=== PATIENT | male | born 1990 | race Caucasian/White ===

== ENCOUNTER 2016-12-05 23:12 | Emergency (ER) | payer OTHER ==
[~2016-12-05] VITALS: Ht 172.7 cm; Wt 104.3 kg
--- NOTE | 2016-12-05 23:29 | ED GENERAL ADULT ---
History of Present Illness General Chief Complaint: ETOH/Drug Related Complaint Stated Complaint: TOOK TO MUCH AMBIEN ON ACCIDENT PER PT Source: patient, family Exam Limitations: no limitations Vital Signs & Intake/Output Vital Signs & Intake/Output Vital Signs Date Time Temp Pulse Resp B/P B/P Pulse O2 O2 Flow FiO2 Mean Ox Delivery Rate 12/05 2324 97.9 99 16 145/87 90 Room Air ED Intake and Output 12/06 0000 12/05 1200 Intake Total Output Total Balance Patient 230 lb Weight Allergies Coded Allergies: No Known Allergies (12/05/16) Reconcile Medications Bupropion HCl (Bupropion XL) 150 MG TAB.ER.24H 1 TAB PO DAILY MOOD STABILIZER (Reported) Eszopiclone 2 MG TABLET 1 TAB PO QPM PTSD (Reported) Gabapentin 300 MG CAPSULE 1 CAP PO TID PAIN (Reported) Oxycodone HCl/Acetaminophen (Oxycodone-Acetaminophen 10-325) 10 MG-325 MG TABLET 1 TAB PO Q4P PRN PAIN (Reported) Prazosin HCl 2 MG CAPSULE 1 CAP PO QPM NIGHT TERRORS (Reported) Sertraline HCl 100 MG TABLET 1 TAB PO DAILY DEPRESSION (Reported) Zolpidem Tartrate 10 MG TABLET 1 TAB PO QPMP SLEEP AID (Reported) Triage Note: PER PT TOOK 25MG OF PERCOCET AT 1830 TO COUNTER ACT NERVE PAIN IN FOOT. THEN AT 2129 TOOK 10 MG AMBIEN, AND MAYBE A 2ND ONE PT VERY SLEEPY IN TRIAGE. DIRECTLY TO ROOM/ Triage Nurses Notes Reviewed? yes HPI: Patient took his last Percocet at 7 PM for his leg pain. Patient has not been sleeping well lately because of his leg pain. Patient took an Ambien tonight before he went to bed. His mom woke up to go to the bathroom and heard him snoring and found him Up off the Bed. She Attempted to Wake Him up Very Slow to Arouse. When He Did Wake up He Told Her That He Was Unsure If He Took One Pill of the Ambien or 2. Mom Brought Him in for Evaluation. Patient Denies Any Suicidal or Homicidal Ideations. Patient Has No Current Complaints. Patient Did Become Nauseous and Vomited Once Here in the Emergency Department. Mom States She Has No Concerns over Depression or Suicidal Attempt. Mom States She Overreacted but Just Wanted to Make Sure That If He Did Take 2 Doses of the Ambien He Will Be Okay. Past History Travel History Traveled to [place] past 21 day No Medical History Any Pertinent Medical History? see below for history Neurological: NONE EENT: NONE Cardiovascular: NONE Respiratory: NONE Gastrointestinal: NONE Hepatic: NONE Renal: NONE Musculoskeletal: NONE Psychiatric: depression Endocrine: NONE Surgical History Surgical History: non-contributory Psychosocial History What is your primary language Finnish Tobacco Use: Never used ETOH Use: occasional use Illicit Drug Use: denies illicit drug use Family History Hx Contributory? No Review of Systems Review of Systems Constitutional: Reports: no symptoms. EENTM: Reports: no symptoms. Respiratory: Reports: no symptoms. Cardiovascular: Reports: no symptoms. GI: Reports: see HPI, nausea, vomiting. Genitourinary: Reports: no symptoms. Musculoskeletal: Reports: no symptoms. Skin: Reports: no symptoms. Neurological/Psychological: Reports: no symptoms. Hematologic/Endocrine: Reports: no symptoms. Immunologic/Allergic: Reports: no symptoms. All Other Systems: Reviewed and Negative Physical Exam Physical Exam General Appearance: well developed/nourished, alert, awake, mild distress Head: atraumatic, normal appearance Eyes: Bilateral: PERRL, EOMI. Ears, Nose, Throat: normal pharynx, normal ENT inspection, hearing grossly normal Neck: normal inspection, supple, full range of motion Respiratory: normal breath sounds, chest non-tender, no respiratory distress, lungs clear Cardiovascular: regular rate/rhythm, normal peripheral pulses Gastrointestinal: normal bowel sounds, soft, non-tender, no organomegaly Back: normal inspection, normal range of motion Extremities: normal inspection, normal capillary refill, normal range of motion, no edema Neurologic/Psych: no motor/sensory deficits, awake, alert, oriented x 3, normal gait, normal mood/affect Skin: intact, normal color, warm/dry Core Measures ACS in differential dx? No CVA/TIA Diagnosis: No Severe Sepsis Present: No Septic Shock Present: No Progress Differential Diagnoses I considered the following diagnoses in my evaluation of the patient: [ Accidental overdose] Plan of Care: Orders Procedure Date/time Status ACETOMINOPHEN 12/05 2339 Complete URINE DRUGS OF ABUSE 12/05 232 Complete ETHANOL 12/05 2326 Complete COMPREHENSIVE METABOLIC PANEL 12/05 2326 Complete CBC WITHOUT DIFFERENTIAL 12/05 2326 Complete Laboratory Tests 12/06/16 0005: Urine Opiates Screen 196.00, Methadone Screen < 40, Barbiturate Screen < 60, Ur Phencyclidine Scrn < 6.00, Amphetamines Screen < 100, U Benzodiazepines Scrn < 85, Urine Cocaine Screen < 50, Urine Cannabis Screen < 5.00 12/05/16 2339: Anion Gap 12, Estimated GFR > 60, BUN/Creatinine Ratio 27.5 H, Glucose 134 H, Calcium 9.1, Total Bilirubin 0.5, AST 35, ALT 64, Alkaline Phosphatase 80, Total Protein 6.8, Albumin 4.4, Globulin 2.4, Albumin/Globulin Ratio 1.8, CBC w Diff NO MAN DIFF REQ, RBC 4.98, MCV 91.1, MCH 31.2 H, RDW 12.1, MPV 7.0 L, Gran % 65.2, Lymphocytes % 24.6, Monocytes % 6.7, Eosinophils % 3.3, Basophils % 0.2, Absolute Granulocytes 6.6 H, Absolute Lymphocytes 2.5, Absolute Monocytes 0.7 H, Absolute Eosinophils 0.3, Absolute Basophils 0, PUBS MCHC 34.2, Acetaminophen < 10.0 L, Serum Alcohol < 10.0 12/05/16 2328: Acetaminophen Cancelled Initial ED EKG: none Comments: Patient adamantly denies that he was trying to hurt himself. His mom is at the bedside and she agrees that he has not attempted to harm himself. She has no concerns for his psychological status. He does have a history of depression. Patient lives with his mother. Mom states that she will keep an eye on him. Patient promises to return if he has any thoughts of harming himself or anybody else. Departure Departure Disposition: HOME OR SELF CARE Condition: Stable Clinical Impression Primary Impression: Ambien accidental overdose Qualifiers: Encounter type: initial encounter Qualified Code: T42.6X1A - Poisoning by other antiepileptic and sedative-hypnotic drugs, accidental ( unintentional), initial encounter Referrals: KRIS ORTIZ MD (PCP/Family) Additional Instructions: RETURN FOR ANY CONCERS CALL 211 OR RETURN TO THE ER FOR ANY THOUGHTS OF HARMING YOURSELF OR ANYONE ELSE. Departure Forms: Customer Survey General Discharge Information Critical Care Note Critical Care Note Critical Care Time: non-applicable
[2016-12-05 23:45] LABS: ABSOLUTE BASOPHIL COUNT 0 /CUMM (0.0-0.2); ABSOLUTE EOSINOPHIL COUNT 0.3 /CUMM (0.0-0.7); ABSOLUTE GRANULOCYTE CT 6.6 /CUMM (1.4-6.5); ABSOLUTE LYMPH COUNT 2.5 /CUMM (1.2-3.4); ABSOLUTE MONOCYTE COUNT 0.7 /CUMM (0.10-0.60); BASOPHIL % 0.2 % (0.0-2.0); EOSINOPHIL % 3.3 % (0-5); GRANULOCYTE % 65.2 % (42.2-75.2); HEMATOCRIT 45.4 % (42-52); MEAN CORPUSCULAR HGB 31.2 PG (27.0-31.0); MEAN CORPUSCULAR HGB CONC 34.2 G/DL (33.0-37.0); MEAN CORPUSCULAR VOLUME 91.1 FL (80.0-94.0); PLATELET COUNT 258 /CUMM (130-400); RBC DISTRIBUTION WIDTH 12.1 % (11.5-14.5); RED BLOOD CELL CT 4.98 /CUMM (4.70-6.10); WHITE BLOOD CELL COUNT 10.1 /CUMM (4.8-10.8)
[2016-12-06] MEDS ORDERED: ZOLPIDEM TARTRA10 M1 PO (00:48)
[2016-12-06] MEDS ORDERED: OXYCODONE-ACET1 EAC1 PO (00:48)
[2016-12-06] MEDS ORDERED: BUPROPION XL150 MG PO (00:49)
[2016-12-06] MEDS ORDERED: PRAZOSIN HCL2 M1 PO (00:49)
[2016-12-06] MEDS ORDERED: SERTRALINE HCL100 MG PO (00:49)
[2016-12-06] MEDS ORDERED: ESZOPICLONE2 M1 PO (00:49)
[2016-12-06] MEDS ORDERED: GABAPENTIN300 M2 PO (00:50)
[2016-12-06 01:13] VITALS: BP 126/70
== END 2016-12-06 01:13 ==
LOC: ERH 23:12
PROVIDERS: Emergency Medicine
DX: T42.6X1A Poisoning by other antiepileptic and sedative-hypnotic drugs, accidental (unintentional), initial encounter (principal)
CPT/HCPCS: 80307; 96374; G0480; J2310

== ENCOUNTER 2017-07-18 | Emergency (ER) | payer OTHER ==
[~2017-07-18] VITALS: Ht 180.3 cm; Wt 99.8 kg
[~2017-07-18] MED LIST: BUPROPION XL150 MG PO; ESZOPICLONE2 M1 PO; GABAPENTIN300 M2 PO; OXYCODONE-ACET1 EAC1 PO; PRAZOSIN HCL2 M1 PO; SERTRALINE HCL100 MG PO; ZOLPIDEM TARTRA10 M1 PO
--- NOTE | 2017-07-18 00:03 | ED AMS/SEIZURE/WEAK/DIZZY ---
History of Present Illness General Chief Complaint: Altered Mental Status Stated Complaint: BIBA AMS Source: patient Exam Limitations: no limitations Vital Signs & Intake/Output Vital Signs & Intake/Output Vital Signs Date Time Temp Pulse Resp B/P B/P Pulse O2 O2 Flow FiO2 Mean Ox Delivery Rate 07/18 1052 98.3 112 16 133/74 96 Room Air 07/18 0735 97.6 114 18 128/74 95 Room Air 07/18 0621 98.1 126 18 123/57 96 Room Air 07/18 0447 97.8 117 18 128/67 97 Room Air 07/18 0300 98.4 124 19 141/69 97 Room Air 07/18 0012 98 Room Air 07/18 0007 98.6 134 20 136/75 98 Room Air Allergies Coded Allergies: No Known Allergies (12/05/16) Reconcile Medications Bupropion HCl (Bupropion XL) 150 MG TAB.ER.24H 1 TAB PO DAILY MOOD STABILIZER (Reported) Eszopiclone 2 MG TABLET 1 TAB PO QPM PTSD (Reported) Gabapentin 300 MG CAPSULE 1 CAP PO TID PAIN (Reported) Oxycodone HCl/Acetaminophen (Oxycodone-Acetaminophen 10-325) 10 MG-325 MG TABLET 1 TAB PO Q4P PRN PAIN (Reported) Prazosin HCl 2 MG CAPSULE 1 CAP PO QPM NIGHT TERRORS (Reported) Sertraline HCl 100 MG TABLET 1 TAB PO DAILY DEPRESSION (Reported) Zolpidem Tartrate 10 MG TABLET 1 TAB PO QPMP SLEEP AID (Reported) Triage Nurses Notes Reviewed? yes Onset: Gradual Duration: hour(s): Timing: recent history Injury Environment: home Severity: moderate, severe Associated Symptoms: lethargy HPI: 27 yo gentleman h/o depression, complex regional pain syndrome, presents with lethargy and increased somnolence. His mother shares that she entered his room at approximately 11pm. She found him extremely lethargic with an empty bottle of zolpidem by his side. He had filled 30 pills of zolpidem 10mg tabs earlier today. 911 called. He was lethargic, but arousable to the medics. Per his mother, he had denied suicidality, drug, alcohol use in the past. (Renetta GARCIA,Keenan Galan) Past History Travel History Traveled to [place] past 21 day No Medical History Any Pertinent Medical History? see below for history Neurological: NONE EENT: NONE Cardiovascular: NONE Respiratory: NONE Gastrointestinal: NONE Hepatic: NONE Renal: NONE Musculoskeletal: NONE Psychiatric: depression Endocrine: NONE Surgical History Surgical History: non-contributory Psychosocial History What is your primary language [place] Citizen Family History Hx Contributory? No (Renetta GARCIA,Keenan Galan) Review of Systems Review of Systems Constitutional: Reports: no symptoms. EENTM: Reports: no symptoms. Respiratory: Reports: no symptoms. Cardiovascular: Reports: no symptoms. GI: Reports: no symptoms. Genitourinary: Reports: no symptoms. Musculoskeletal: Reports: no symptoms. Skin: Reports: no symptoms. Neurological/Psychological: Reports: no symptoms. Hematologic/Endocrine: Reports: no symptoms. Immunologic/Allergic: Reports: no symptoms. All Other Systems: Reviewed and Negative (Renetta GARCIA,Keenan Galan) Physical Exam Physical Exam General Appearance: well developed/nourished, no apparent distress, lethargic Head: atraumatic, normal appearance Eyes: Bilateral: normal appearance, PERRL, EOMI. Ears, Nose, Throat: normal pharynx, normal ENT inspection Neck: normal inspection, supple, full range of motion Respiratory: normal breath sounds, chest non-tender, no respiratory distress, quiet respiration, lungs clear Cardiovascular: regular rate/rhythm Gastrointestinal: normal bowel sounds, soft, non-tender, no organomegaly Back: normal inspection, normal range of motion Extremities: normal range of motion, evidence of injury Neurologic/Psych: no motor/sensory deficits, lethargic, but arousable to vigorous stimuli Skin: intact, normal color, warm/dry Core Measures ACS in differential dx? No CVA/TIA Diagnosis No Sepsis Present: No Sepsis Focused Exam Completed? No (Renetta GARCIA,Keenan Galan) Progress Differential Diagnosis: alcohol intoxication, electrolyte imbalance, drug abuse, suicide attempt vs other. , inadvertent drug overdose Plan of Care: Orders Procedure Date/time Status Regular Diet 07/19 B Active Add-on Test (ER Only) 07/18 1130 Active ACETOMINOPHEN 07/18 0025 Active SALICYLATE 07/18 0025 Active Continuous Observation Monitor 07/18 0003 Active URINE DRUG SCREEN FOR ER ONLY 07/18 0003 Complete ETHANOL 07/18 0003 Active COMPREHENSIVE METABOLIC PANEL 07/18 0003 Active CBC WITHOUT DIFFERENTIAL 07/18 0003 Complete EKG 07/18 0003 Active ED CRISIS PSYCH CONSULT 07/18 0003 Active Laboratory Tests 07/18/17 0115: Urine Opiates Screen 2887.00 H, Methadone Screen < 40, Barbiturate Screen < 60, Ur Phencyclidine Scrn < 6.00, Amphetamines Screen < 100, U Benzodiazepines Scrn < 85, Urine Cocaine Screen < 50, Urine Cannabis Screen 77.00 H 07/18/17 0025: Anion Gap 14, Estimated GFR > 60, BUN/Creatinine Ratio 17.1, Glucose 104 H, Calcium 8.5, Total Bilirubin 0.4, AST 25, ALT 48, Alkaline Phosphatase 77, Total Protein 6.4, Albumin 4.2, Globulin 2.2, Albumin/Globulin Ratio 1.9, CBC w Diff NO MAN DIFF REQ, RBC 4.55 L, MCV 90.1, MCH 31.1 H, RDW 12.4, MPV 7.4, Gran % 56.8, Lymphocytes % 21.7, Monocytes % 18.3 H, Eosinophils % 2.8, Basophils % 0.4, Absolute Granulocytes 2.7, Absolute Lymphocytes 1.0 L, Absolute Monocytes 0.9 H, Absolute Eosinophils 0.1, Absolute Basophils 0, PUBS MCHC 34.6, Salicylates Pending, Acetaminophen Pending, Serum Alcohol < 10.0 Initial ED EKG: sinus tach, no acute changes Hand-Off Endorsed To: Dre Damon MD Endorsed Time: 0700 Pending: consult, other (sobriety) (Renetta GARCIA,Keenan Galan) Comments: 07/18/2017 11:47:27 AM I have updated Kailash and his mother on the senior technical analyst's assessment and plan. They are agreeable with this. I have also asked that he follow up with his primary care physician for general medical evaluation. (Dre Damon MD) Departure Departure Disposition: STILL A PATIENT Condition: Stable Clinical Impression Primary Impression: Ambien accidental overdose Secondary Impressions: Lethargy Referrals: Skyler Sosa MD (PCP/Family) Departure Forms: Customer Survey General Discharge Information (Renetta GARCIA,Keenan Galan) Departure Additional Instructions: Follow-up with your outpatient appointment on August 01 at 2:45pm at the [facility] outpatient psychiatry department. Arrange for follow-up appointment with your primary care physician as well for general medical evaluation. Return if any concerns or sudden worsening. Please note that there might be incidental findings in your evaluation that are unrelated to the current emergency department visit. Please notify your primary care doctor about this emergency department visit in order to obtain and review all of the testing performed so that these incidental findings can be monitored as needed. If you had an x-ray performed, please understand that some fractures may not be seen on the initial set of x-rays. If your symptoms persist you might need a repeat set of x-rays to check for such a fracture. If you had a laceration evaluated, please understand that foreign bodies such as glass or wood may not be visible to the naked eye or on plain x-rays. If the wound becomes red, swollen, increasingly more painful or if there is any drainage from the wound, please have it reevaluated by a physician for the possibility of a retained foreign body. If you're unable to follow up as outlined in the discharge instructions please return to the emergency department. Thank you for choosing the [facility] Emergency Department for your care. It was a pleasure to serve you today. rDe Damon M.D. [facility] (Marisol GARCIA,Dre Akins) Critical Care Note Critical Care Note Critical Care Time: 30-74 min (Renetta GARCIA,Keenan Galan)
[2017-07-18 00:37] LABS: ABSOLUTE BASOPHIL COUNT 0 /CUMM (0.0-0.2); ABSOLUTE EOSINOPHIL COUNT 0.1 /CUMM (0.0-0.7); ABSOLUTE GRANULOCYTE CT 2.7 /CUMM (1.4-6.5); ABSOLUTE MONOCYTE COUNT 0.9 /CUMM (0.10-0.60); BASOPHIL % 0.4 % (0.0-2.0); EOSINOPHIL % 2.8 % (0-5); GRANULOCYTE % 56.8 % (42.2-75.2); MEAN CORPUSCULAR HGB 31.1 PG (27.0-31.0); MEAN CORPUSCULAR HGB CONC 34.6 G/DL (33.0-37.0); MEAN CORPUSCULAR VOLUME 90.1 FL (80.0-94.0); MEAN PLATELET VOLUME 7.4 FL (7.4-10.4); PLATELET COUNT 217 /CUMM (130-400); RBC DISTRIBUTION WIDTH 12.4 % (11.5-14.5); RED BLOOD CELL CT 4.55 /CUMM (4.70-6.10); WHITE BLOOD CELL COUNT 4.8 /CUMM (4.8-10.8)
[2017-07-18 10:52] VITALS: BP 133/74
--- NOTE | 2017-07-18 12:04 | ED PSYCH CRISIS CONSULTATION ---
Crisis Consult Basic Assessment Date of Consult: 07/18/17 Responsible Person/Accompanied By: Self Insurance Authorization: Insurance #1: Insurance name: [employer] Phone number: Policy number: [id number] Group number: [id number] Authorization number: ED Provider: Patient's ED Provider: Renetta GARCIA,Keenan Galan Primary Care Physician: Patient's PCP: Skyler Sosa MD PCP's Current Psychiatrist: Dr. Tucker [phone] Chief Complaint: Altered Mental Status Patient's Quote: "I've been having trouble sleeping. I'm so stressed out". Present Illness: Pt is a 27 year old white male BIBA last evening from his home. Pt's mother called 911 when she found pt to be extremely lethargic. Pt stated that he took his Ambien last evening and then he believes he took a second pill forgetting that he had already taken it. A similar situation occurred this past November when he was also sent to the emergency department. Pt described this incident as accidental and denied any suicidal intent. Pt stated that he is diagnosed with Complex Regional pain Syndrome and found to have a benign cyst on his spine. He is being treated by Dr. Wooten a neurologist and prescribed Morphine and medical marijuana to treat the pain. Pt has also been seeing a psychiatrist, Dr. Tucker, for the past 2 1/2 years. Pt stated that he suffers anxiety and depression. He stated that he is prescribed Zoloft, Wellbutrin, Prazosin and Ambien. Pt denied any history of inpatient or outpatient mental health treatment. Pt denied any history of or current substance abuse or treatment. Pt lives with his mother and has no siblings. Pt explained that he lost his father to cancer three years ago. He described his father's as very traumatic. Pt sobbed as he spoke of his father's . He was very close with his father and also now feels the burden of supporting he and his mother. 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 Pt is working on his thesis for his PhD and stated that he has 20-30 pages left to complete. He stated that the stress related to his schooling is very high. Pt stated that he is also in a relationship with a female for the past 2 1/2 years. He described the relationship as stressful as well. Pt was alert and oriented. He was cooperative and receptive toward the evaluation process. Pt presented as groggy but his thought process was clear and organized. His speech was soft and slowed. Pt denied any hallucinations and did not present with any delusional mentation. Pt denied any history of or current suicidal/homicidal ideations or behaviors. Pt also denied any history of self injurious or risk taking behaviors. Pt's current needs meet an outpatient level of care which is recommended at this time. Clinician was able to also obtain collateral information from pt's mother. Clinician was able to reach pt's psychiatrist, Dr. Tucker, to inform him of the pt's ED visit and plan for outpatient counseling here at [facility]. Medication concerns were also discussed with Dr. Tucker. Clinician also attempted to call pt's neurologist, Dr. Wooten, and left a message with the answering service to return clinician's call. Clinician was able to make an outpatient counseling appointment for pt at [facility] for 08/01/17 at 2:45 pm. Pt and mother agreed with the plan. Pt. also has a follow up appointment with his neurologist tomorrow. Patient's Address: [address] [place] [address] Other Phone Number: Who Do You Live With? Mother Family/Informants Interviewed: mother and Dr. Tucker, psychiatrist . Allergies - Coded Allergies: No Known Allergies (12/05/16) Current Medications - Scheduled Medications Bupropion HCl (Bupropion XL) 150 MG TAB.ER.24H 1 TAB PO DAILY MOOD STABILIZER #30 (Reported) Entered as Reported by Riley Rangel on 12/06/16 004 Eszopiclone 2 MG TABLET 1 TAB PO QPM PTSD #30 (Reported) Entered as Reported by Riley Rangel on 12/06/16 004 Gabapentin 300 MG CAPSULE 1 CAP PO TID PAIN #90 (Reported) Entered as Reported by Riley Rangel on 12/06/16 005 Prazosin HCl 2 MG CAPSULE 1 CAP PO QPM NIGHT TERRORS #60 (Reported) Entered as Reported by Riley Rangel on 12/06/1648 Sertraline HCl 100 MG TABLET 1 TAB PO DAILY DEPRESSION #30 (Reported) Entered as Reported by Riley Rangel on 12/06/169 Zolpidem Tartrate 10 MG TABLET 1 TAB PO QPMP SLEEP AID #30 (Reported) Entered as Reported by Riley Rangel on 12/06/1647 Scheduled PRN Medications Oxycodone HCl/Acetaminophen (Oxycodone-Acetaminophen 10-325) 10 MG-325 MG TABLET 1 TAB PO Q4P PRN PAIN #12 (Reported) Entered as Reported by Riley Rangel on 12/06/1647 Laboratory Results: Laboratory Tests 07/18/17 0115: Urine Opiates Screen 2887.00 H, Methadone Screen < 40, Barbiturate Screen < 60, Ur Phencyclidine Scrn < 6.00, Amphetamines Screen < 100, U Benzodiazepines Scrn < 85, Urine Cocaine Screen < 50, Urine Cannabis Screen 77.00 H 07/18/17 0025: Anion Gap 14, Estimated GFR > 60, BUN/Creatinine Ratio 17.1, Glucose 104 H, Calcium 8.5, Total Bilirubin 0.4, AST 25, ALT 48, Alkaline Phosphatase 77, Total Protein 6.4, Albumin 4.2, Globulin 2.2, Albumin/Globulin Ratio 1.9, CBC w Diff NO MAN DIFF REQ, RBC 4.55 L, MCV 90.1, MCH 31.1 H, RDW 12.4, MPV 7.4, Gran % 56.8, Lymphocytes % 21.7, Monocytes % 18.3 H, Eosinophils % 2.8, Basophils % 0.4, Absolute Granulocytes 2.7, Absolute Lymphocytes 1.0 L, Absolute Monocytes 0.9 H, Absolute Eosinophils 0.1, Absolute Basophils 0, PUBS MCHC 34.6, Salicylates < 1.0, Acetaminophen < 10.0 L, Serum Alcohol < 10.0 Past History Past Medical History Neurological: NONE EENT: NONE Cardiovascular: NONE Respiratory: NONE Gastrointestinal: NONE Hepatic: NONE Renal: NONE Musculoskeletal: NONE Psychiatric: depression Endocrine: NONE Past Surgical History Surgical History: non-contributory Psychosocial History Strengths/Capabilities: Motivated for treatment. supportive mother. Psychiatric involvment Physical Limitations (Interventions): Pt described that he has a cyst on his spine which causes some physical limitations. Psychiatric Treatment History Psych Treatment Psychiatric Treatment Yes Inpatient Treatment No Outpatient Treatment No Location of Treatment Dr. Tucker, psychiatrist Reason for Treatment depression and anxiety Dates of Treatment past 2 1/2 years. Response to Treatment Pt described symptoms of depression, anxiety and poor sleep persist. Diagnosis by History: depression and anxiety Substance Use/Abuse History Drug Use/Abuse Substances Used/Abused No Substance Abuse Treatment Substance Abuse Treatment Past Substance Abuse [place] No Inpatient Treatment No Outpatient Treatment No Location of Treatment n/a Reason for Treatment n/a Response to Treatment n/a Current Mental Status Mental Status Orientation: Person, Place, Situation Affect: Depressed Speech: Soft Neuro-vegetative: Appetite Decreased, Sleep Disturbance Appearance Appearance- Dress/Hygiene: Pt dressed in hospital scrubs. Hygiene appears to be wnl. Behaviors Thought Process: WNL Thought Content: WNL Memory: WNL Insight: Fair SI/HI Risk Assessment Past Suicidal Ideation/Attempts No Current Suicidal Ideation/Att No Past Homicidal Ideation/Att: No Current Homicidal Ideation/Attempts No Degree of Intent: None Risk Factors: chronic/serious med cond., high anxiety/distress, male Lethality Ratin PTSD Checklist PTSD Done? patient declined ED Management Sitter: Yes Restraints: No DSM5/PS Stressors/Medical Prob Diagnosis' (DSM 5, Stressors, Medical): F32.9 Unspecified Depressive Disorder F41.9 Unspecified Anxiety Disorder Current GAF: 45 Departure Disposition Psych Medical Clearance Date: 07/18/17 Medically Cleared at: 1000 Time Started: 1000 Time Ended: 1100 Psychiatrist Consulted: Keenan Thomas MD Date Disposition Established: 07/18/17 Time Disposition Established: 1115 Plan for Disposition - Modality: Outpatient Facility: [facility] Follow-up Appt Date: 08/01/17 Follow-Up Appt Time: 1445 Rationale for Disposition: Pt's current needs meet an outpatient level of care which is recommended at this time. Pt denied any suicidal or homicidal ideations or intent. Pt is considered at low risk for harm to self and or others. Pt describes ongoing depression, anxiety and unresolved grief with no history of outpatient psychotherapy. Pt and mother agree with plan for outpatient counseling. Referrals Skyler Sosa MD (PCP/Family)
== END 2017-07-18 12:00 ==
LOC: ERH
PROVIDERS: Pediatrics
DX: T45.0X1A Poisoning by antiallergic and antiemetic drugs, accidental (unintentional), initial encounter (principal); R53.83 Other fatigue
CPT/HCPCS: 80307; 93005; 93010; G0480